=== PATIENT | female | born 1955 | race Two or more races ===

== ENCOUNTER 2022-12-29 07:47 | Day surgery (SDC) | payer OTHER ==
[~2022-12-29] VITALS: Ht 154.9 cm; Wt 74.4 kg
[~2022-12-29 07:47] MED LIST: AMBIEN5 MG PO; AVAPRO150 MG PO; B12 ACTIVE1000 MCG PO; CALTRATE 600+D1 EAC1 PO; FOLIC ACID0.8 M1 PO; INTEGRA PLUS C1 EACH PO; PROAIR RESPICL90 MCG IH; SYNTHROID75 MCG PO; WIXELA 100-501 EACH IH; ZOLOFT100 MG PO
[2022-12-29] MEDS ORDERED: TRAM1TAB98 PO (13:46)
== END 2022-12-29 16:30 | disposition home or self-care (01) ==
LOC: CIR.AMB 07:47 → EDBD 10:45 → CIR.AMB 10:45
PROVIDERS: ATTEND Surgery
DX: R15.9 Full incontinence of feces (principal); I10 Essential (primary) hypertension; E03.9 Hypothyroidism, unspecified
CPT/HCPCS: 64581; 95972; C1778

== ENCOUNTER 2023-01-12 06:53 | Day surgery (SDC) | payer OTHER ==
[~2023-01-12 06:53] MED LIST changes: +TRAM1TAB98 PO
[2023-01-12] MEDS ORDERED: TRAM1TAB98 PO (12:50)
== END 2023-01-12 16:00 | disposition home or self-care (01) ==
LOC: CIR.AMB 06:53
PROVIDERS: ATTEND Surgery
DX: R15.9 Full incontinence of feces (principal); Z20.822 Contact with and (suspected) exposure to COVID-19; I10 Essential (primary) hypertension; E03.9 Hypothyroidism, unspecified
CPT/HCPCS: 64590; 95972; L8679